=== PATIENT | female | born 1960 | race Caucasian/White ===

== ENCOUNTER 2017-02-17 10:41 | Inpatient (IN) | payer OTHER ==
[~2017-02-17] VITALS: Ht 147.3 cm; Wt 73.3 kg
[~2017-02-17 10:41] MED LIST: BACL10TA PO; BUPR150T7 PO; HYDR1CAP85 PO; LEVO112T4 PO; LOSA100T65 PO; OXYB5TAB21 PO; PRAZ1CAP28 PO; SIMV40TA2 PO; TRAZ1TAB5 PO; VENL150C56 PO
[2017-02-17] MEDS ORDERED: SODIUM CHLORIDE 0.9% 1000ML 1,000 ML IV STA (11:16)
[2017-02-17] MEDS ORDERED: ONDANSETRON INJ 2 MG/ML 2 ML VIAL IV STA (11:16)
[2017-02-17] MEDS: MoRPHine SULFATE 4 MG/ML 1 ML CARP\\VIAL IV PRN ×2 (11:45→13:26)
[2017-02-17 11:46] LABS: BASO % 0.1 %; BASO ABS # 0.01 K/uL (0-0.2); COMPLETE YES; EOS % 0.1 %; HEMATOCRIT 34.6 % (37-47); IG% 0.3 %; LYMPH % 10.6 %; LYMPH ABS # 1.15 K/uL (1.2-3.4); MEAN CELL VOLUME 85.9 fL (80-100); MEAN CORPUSCULAR HEMOGLOBIN 30.3 pg (25-34); MEAN CORPUSCULAR HGB CONC 35.3 g/dl (32-36); MEAN PLATELET VOLUME 9.6 fL (7.4-10.4); MONO % 10.6 %; NEUT % 78.3 %; PLATELET COUNT 250 K/uL (130-400); RED BLOOD COUNT 4.03 M/uL (4.2-5.4); WHITE BLOOD COUNT 10.81 K/uL (4.8-10.8)
[2017-02-17 11:55] LABS: URINE APPEARANCE CLEAR (CLEAR); URINE BILIRUBIN NEG (NEG); URINE COLOR YELLOW; URINE EPITHELIAL CELL AUTO >30 /lpf (0-5); URINE NITRITE POS (NEG); URINE SPECIFIC GRAVITY 1.008 (1.000-1.030); UROBILINOGEN NEG (NEG)
[2017-02-17 11:58] LABS: INR 1.1 (0.9-1.1); PARTIAL THROMBOPLASTIN RATIO 1.1; PROTHROMBIN TIME (PATIENT) 11.7 SECONDS (9.0-12.0)
[2017-02-17 12:08] LABS: ALT/SGPT 23 U/L (12-78); AMYLASE 23 U/L (25-115); BLOOD UREA NITROGEN 11 mg/dl (7-18); CALCIUM 8.6 mg/dl (8.5-10.1); CARBON DIOXIDE 24 mmol/L (21-32); CHLORIDE 104 mmol/L (98-107); CREATININE 0.83 mg/dl (0.60-1.20); GLUCOSE 109 mg/dl (70-99); POTASSIUM 3.5 mmol/L (3.5-5.1); SODIUM 136 mmol/L (136-145)
--- NOTE | 2017-02-17 12:10 | DIAGNOSTIC IMAGING REPORT ---
CT SCAN OF THE ABDOMEN AND PELVIS WITHOUT CONTRAST CLINICAL HISTORY: Left flank pain COMPARISON STUDY: No previous studies for comparison. TECHNIQUE: CT scan of the abdomen and pelvis was performed from the lung bases to the proximal femurs. Images are reviewed in the axial, sagittal, and coronal planes. IV contrast was not administered for this examination. A dose lowering technique was utilized adhering to the principles of ALARA. CT DOSE: 377.61 mGy.cm FINDINGS: Lower chest: There are mild basilar atelectatic changes. Liver: The unenhanced liver is normal in size, contour, and attenuation. There is no intrahepatic biliary ductal dilatation. Gallbladder: Unremarkable. Spleen: Normal in size and attenuation. Pancreas: Unremarkable. Adrenal glands: Unremarkable. Kidneys: There is mild right-sided hydronephrosis and right-sided perinephric stranding. No renal, ureteral, or bladder calculi are visualized. Diagnostic considerations include a recently passed or radiolucent calculus, infection, or other cause of ureteral obstruction. Close follow-up will be necessary. Bowel: There are no transition zones to indicate bowel obstruction. There is no acute diverticulitis. By history the appendix is surgically absent. Peritoneum: There is no intraperitoneal free air or abdominal ascites. Vasculature: The abdominal aorta is normal in course and caliber. Adenopathy: None. Pelvic viscera: The uterus appears surgically absent. Skeletal structures: No destructive osseous lesions are seen. IMPRESSION: 1. No evidence of bowel obstruction. No evidence of free air 2. Mild right-sided hydronephrosis and proximal hydroureter. No calculi identified. Diagnostic considerations include recently passed or radiolucent calculus, infection, or ureteral obstruction secondary to blood clot or neoplasm Electronically signed by: Koffi Blas M.D. 02/17/2017 12:09 PM Dictated Date/Time: 02/17/2017 12:02 PM
[2017-02-17 12:11] LABS: MANUAL MICROSCOPIC REQUIRED? NO; REVIEW REQ? NO
[2017-02-17 12:13] LABS: ALKALINE PHOSPHATASE 109 U/L (45-117); AST/SGOT 15 U/L (15-37); CKMB/CK RATIO 0.7 (0-3.0)
--- NOTE | 2017-02-17 12:28 | DIAGNOSTIC IMAGING REPORT ---
CHEST ONE VIEW PORTABLE CLINICAL HISTORY: Abdominal pain COMPARISON STUDY: October 04, 2015 FINDINGS: The cardiac and mediastinal contours are normal. There is no evidence of focal pulmonary consolidation. There is no evidence of failure. No pleural effusions are visualized.[ There are bibasal atelectatic changes. There is no free intraperitoneal air. IMPRESSION: No active disease in the chest. Mild bibasal atelectasis. No evidence of free intraperitoneal air. Electronically signed by: Koffi Blas M.D. 02/17/2017 12:27 PM Dictated Date/Time: 02/17/2017 12:26 PM
[2017-02-17] MEDS ORDERED: CEFTRIAXONE SOD INJ 1 GM ADDVIAL IV STA (12:40)
[2017-02-17] MEDS ORDERED: CLB/200 PO (12:41)
[2017-02-17] MEDS ORDERED: NRN300 PO (12:41)
[2017-02-17] MEDS ORDERED: ATR10 PO (12:41)
[2017-02-17] MEDS ORDERED: DISU1TAB PO (12:41)
--- NOTE | 2017-02-17 13:12 | EMERGENCY ROOM VISIT NOTE ---
History Report prepared by Seun: Spike Gordon Under the Supervision of: Dr. Jcarlos Godoy D.O. First contact with patient: 11:07 Chief Complaint: CONSTIPATION Stated Complaint: NAUSEA, CONSTIPATION X 1-2 WKS Nursing Triage Summary: Patient reports lower back pain states no bowel movement x 2 weeks. Denies previous issues with constipation Patient c/o nausea Sent by [facility] History of Present Illness The patient is a 56 year old female who presents to the Emergency Room with complaints of persistent constipation beginning two weeks ago. She states that she has not defecated in two weeks, but had a small bowel movement yesterday. She currently complains of abdominal pain, nausea, difficultly swallowing, burning with urination and back pain. The patient was seen at [facility] just prior to arrival for her symptoms and was referred to the ED. She was found to have a UTI at that time. She denies any blood in her stool or vaginal discharge. The patient states that she has been taking her medication as prescribed. She notes that she has a history of arthritis in her back. She states that she has not been eating much recently. The patient's sister notes that the patient has been having a lot of social problems over the past three months. She states that the patient's left her, and has not been eating much since this time. The patient has a history of depression, and previous alcoholism. She is currently on Disulfiram for her alcoholism, and notes that she missed her dose yesterday. Source of History: patient Onset: Two weeks ago Quality: other (constipation) Timing: other (persistent) Associated Symptoms: + nausea, + abdominal pain, + back pain, + urinary symptoms (burning), No hematochezia Note: Additional symptoms: difficulty swallowing. She denies any vaginal discharge. Review of Systems See HPI for pertinent positives & negatives. A total of 10 systems reviewed and were otherwise negative. Past Medical & Surgical Medical Problems: (1) Alcohol dependence (2) History of attempted suicide (3) Intractable low back pain (4) Major depressive disorder (5) Suicide attempt by acetaminophen overdose (6) Tylenol ingestion Family History FHx: cardiovascular disease Social History Smoking Status: Former Smoker Alcohol Use: none Drug Use: none Marital Status: Housing Status: lives with family Occupation Status: employed Current/Historical Medications Scheduled Bupropion Hcl (Wellbutrin Sr), 150 MG PO DAILY Disulfiram (Antabuse), 250 MG PO DAILY Gabapentin (Gabapentin), 1 CAP PO DAILY Hydroxyzine Pamoate (Vistaril), 25 MG PO DAILY Levothyroxine Sodium (Levothyroxine Sodium), 112 MCG PO DAILY Losartan Potassium (Cozaar), 100 MG PO DAILY Oxybutynin Chloride (Ditropan Xl), 10 TAB PO DAILY Prazosin Hcl (Prazosin), 1 MG PO QID Simvastatin (Zocor), 40 MG PO QPM Venlafaxine Hcl (Effexor Extended Rel), 150 MG PO DAILY Scheduled PRN Baclofen (Lioresal), 10 MG PO TID PRN for prn Celecoxib (CeleBREX), 200 MG PO UD PRN for Pain Hydroxyzine HCl (Hydroxyzine HCl), 1 TAB PO DAILY PRN for Anxiety Trazodone Hcl (Desyrel), 50 MG PO HS PRN for Insomnia Allergies Coded Allergies: Sulfa Antibiotics (Verified Allergy, Unknown, `, 02/17/17) Lisinopril (Verified Adverse Reaction, Mild, cough, 02/17/17) Physical Exam Vital Signs Date Time Temp Pulse Resp B/P (MAP) Pulse Ox O2 Delivery O2 Flow Rate FiO2 02/17/17 12:52 98 16 132/82 96 Room Air 02/17/17 12:26 97 02/17/17 12:10 95 18 131/82 97 Room Air 02/17/17 10:49 36.6 112 20 117/81 97 Room Air Physical Exam GENERAL: Patient is awake, alert, and in no acute distress. Patient appears very anxious and uncomfortable. EYES: The conjunctivae are clear. The pupils are round and reactive. EARS, NOSE, MOUTH AND THROAT: The nose is without any evidence of any deformity. Mucous membranes are moist tongue is midline NECK: The neck is nontender and supple. RESPIRATORY: Normal respiratory effort is noted there is no evidence of wheezing rhonchi or rales CARDIOVASCULAR: Regular rate and rhythm noted there no murmurs rubs or gallops normal S1 normal S2 GASTROINTESTINAL: Bowel sounds are present in all quadrants. Mildly distended with diffuse tenderness. No guarding or rigidity noted. BACK: No midline tenderness or or step-off noted range of motion in flexion extension as well as rotation no signs of muscle spasm noted. Diffuse tenderness to palpation. No specific midline tenderness. ROM intact. MUSCULOSKELETAL/EXTREMITIES: There is no evidence of gross deformity full range of motion is noted in the hips and shoulders SKIN: There is no obvious evidence of any rash. There are no petechiae, pallor or cyanosis noted. NEUROLOGIC: Patient is awake alert and oriented x3 strength is symmetric patellar reflexes are 2+ bilaterally. Medical Decision & Procedures ER Provider Diagnostic Interpretation: CT results as stated below per my review and radiologist interpretation. CT SCAN OF THE ABDOMEN AND PELVIS WITHOUT CONTRAST FINDINGS: Lower chest: There are mild basilar atelectatic changes. Liver: The unenhanced liver is normal in size, contour, and attenuation. There is no intrahepatic biliary ductal dilatation. Gallbladder: Unremarkable. Spleen: Normal in size and attenuation. Pancreas: Unremarkable. Adrenal glands: Unremarkable. Kidneys: There is mild right-sided hydronephrosis and right-sided perinephric stranding. No renal, ureteral, or bladder calculi are visualized. Diagnostic considerations include a recently passed or radiolucent calculus, infection, or other cause of ureteral obstruction. Close follow-up will be necessary. Bowel: There are no transition zones to indicate bowel obstruction. There is no acute diverticulitis. By history the appendix is surgically absent. Peritoneum: There is no intraperitoneal free air or abdominal ascites. Vasculature: The abdominal aorta is normal in course and caliber. Adenopathy: None. Pelvic viscera: The uterus appears surgically absent. Skeletal structures: No destructive osseous lesions are seen. IMPRESSION: 1. No evidence of bowel obstruction. No evidence of free air 2. Mild right-sided hydronephrosis and proximal hydroureter. No calculi identified. Diagnostic considerations include recently passed or radiolucent calculus, infection, or ureteral obstruction secondary to blood clot or neoplasm Electronically signed by: Koffi Blas M.D. 02/17/2017 12:09 PM CHEST ONE VIEW PORTABLE FINDINGS: The cardiac and mediastinal contours are normal. There is no evidence of focal pulmonary consolidation. There is no evidence of failure. No pleural effusions are visualized.[ There are bibasal atelectatic changes. There is no free intraperitoneal air. IMPRESSION: No active disease in the chest. Mild bibasal atelectasis. No evidence of free intraperitoneal air. Electronically signed by: Koffi Blas M.D. Laboratory Results 02/17/17 11:35 Red Blood Count 4.03, Mean Corpuscular Volume 85.9, Mean Corpuscular Hemoglobin 30.3, Mean Corpuscular Hemoglobin Concent 35.3, Mean Platelet Volume 9.6, Neutrophils (%) (Auto) 78.3, Lymphocytes (%) (Auto) 10.6, Monocytes (%) (Auto) 10.6, Eosinophils (%) (Auto) 0.1, Basophils (%) (Auto) 0.1, Neutrophils # (Auto ) 8.46, Lymphocytes # (Auto) 1.15, Monocytes # (Auto) 1.15, Eosinophils # (Auto ) 0.01, Basophils # (Auto) 0.01 02/17/17 11:35 Test 02/17/17 11:30 02/17/17 11:35 Urine Color YELLOW Urine Appearance CLEAR (CLEAR) Urine pH 6.0 (4.5-7.5) Urine Specific Cobb 1.008 (1.000-1.030) Urine Protein NEG (NEG) Urine Glucose (UA) NEG (NEG) Urine Ketones 1+ (NEG) Urine Occult Blood TRACE (NEG) Urine Nitrite POS (NEG) Urine Bilirubin NEG (NEG) Urine Urobilinogen NEG (NEG) Urine Leukocyte Esterase SMALL (NEG) Urine WBC (Auto) 10-30 /hpf (0-5) Urine RBC (Auto) 0-4 /hpf (0-4) Urine Hyaline Casts (Auto) 0 /lpf (0-5) Urine Epithelial Cells (Auto) >30 /lpf (0-5) Urine Bacteria (Auto) 4+ (NEG) White Blood Count 10.81 K/uL (4.8-10.8) Red Blood Count 4.03 M/uL (4.2-5.4) Hemoglobin 12.2 g/dL (12.0-16.0) Hematocrit 34.6 % (37-47) Mean Corpuscular Volume 85.9 fL (80-100) Mean Corpuscular Hemoglobin 30.3 pg (25-34) Mean Corpuscular Hemoglobin Concent 35.3 g/dl (32-36) Platelet Count 250 K/uL (130-400) Mean Platelet Volume 9.6 fL (7.4-10.4) Neutrophils (%) (Auto) 78.3 % Lymphocytes (%) (Auto) 10.6 % Monocytes (%) (Auto) 10.6 % Eosinophils (%) (Auto) 0.1 % Basophils (%) (Auto) 0.1 % Neutrophils # (Auto) 8.46 K/uL (1.4-6.5) Lymphocytes # (Auto) 1.15 K/uL (1.2-3.4) Monocytes # (Auto) 1.15 K/uL (0.11-0.59) Eosinophils # (Auto) 0.01 K/uL (0-0.5) Basophils # (Auto) 0.01 K/uL (0-0.2) RDW Standard Deviation 39.6 fL (36.4-46.3) RDW Coefficient of Variation 12.5 % (11.5-14.5) Immature Granulocyte % (Auto) 0.3 % Immature Granulocyte # (Auto) 0.03 K/uL (0.00-0.02) Prothrombin Time 11.7 SECONDS (9.0-12.0) Prothromb Time International Ratio 1.1 (0.9-1.1) Activated Partial Thromboplast Time 29.7 SECONDS (21.0-31.0) Partial Thromboplastin Ratio 1.1 Anion Gap 8.0 mmol/L (3-11) Est Creatinine Clear Calc Drug Dose 62.8 ml/min Estimated GFR () 90.1 Estimated GFR (Non- 77.7 BUN/Creatinine Ratio 13.0 (10-20) Calcium Level 8.6 mg/dl (8.5-10.1) Total Bilirubin 0.4 mg/dl (0.2-1) Direct Bilirubin 0.2 mg/dl (0-0.2) Aspartate Amino Transf (AST/SGOT) 15 U/L (15-37) Alanine Aminotransferase (ALT/SGPT) 23 U/L (12-78) Alkaline Phosphatase 109 U/L (45-117) Total Creatine Kinase 95 U/L (26-192) Creatine Kinase MB 0.7 ng/ml (0.5-3.6) Creatine Kinase MB Ratio 0.7 (0-3.0) Troponin I < 0.015 ng/ml (0-0.045) Total Protein 7.0 gm/dl (6.4-8.2) Albumin 3.2 gm/dl (3.4-5.0) Amylase Level 23 U/L (25-115) Lipase 43 U/L (73-393) Thyroid Stimulating Hormone (TSH) 0.366 uIu/ml (0.300-4.500) Laboratory results per my review. Medications Administered Medications (Trade) Dose Ordered Sig/John Route Start Time Stop Time Status Last Admin Dose Admin Sodium Chloride 1,000 ml @ 999 mls/hr Q1H1M STAT IV 02/17/17 11:16 02/17/17 12:16 DC 02/17/17 11:45 999 MLS/HR Ondansetron HCl (Zofran Inj) 4 mg NOW STAT IV 02/17/17 11:16 02/17/17 11:18 DC 02/17/17 11:44 4 MG Morphine Sulfate (MoRPHine SULFATE INJ) 4 mg Q15M PRN IV 02/17/17 11:30 02/17/17 15:10 DC 02/17/17 13:26 4 MG Ceftriaxone Sodium (Rocephin Inj) 1 gm NOW STAT IV 02/17/17 12:40 02/17/17 12:41 DC 02/17/17 12:52 1 GM Acetaminophen (Tylenol Tab) 650 mg Q4H PRN PO 02/17/17 14:00 03/19/17 13:59 02/17/17 16:16 650 MG ECG Indication: abdominal pain Rate (beats per minute): 100 Rhythm: normal sinus Findings: no acute ischemic change, no ectopy Comparison ECG Date: October 04, 2015 Change: no significant change ED Course 1110: The patient was evaluated in room A12B. A complete history and physical examination were performed. 1116: Ordered Zofran Inj 4 mg IV, NSS 1,000 ml @ 999 mls/hr IV. 1130: Ordered Morphine Sulfate 4 mg IV. 1240: Ordered Rocephin Inj 1 gm IV. 1245: Upon reevaluation, the patient is resting comfortably. I discussed results and treatment plan with her. She verbalizes agreement and understanding. I spoke with Dr. Edgar of the [facility] Hospitalist Service. The patient will be evaluated for further management and care. Medical Decision Differential diagnosis: Etiologies such as appendicitis, diverticulitis, PUD, biliary pathology, UTI, pancreatitis, obstruction, mesenteric ischemia, aortic pathology, infections, inflammatory bowel disease, renal colic, as well as others were entertained. Nursing notes reviewed. Additional history is obtained from the patient's sister. The patient is a 56-year-old female who presented to emergency department for an evaluation of severe back pain as well as abdominal pain. The patient was seen at [facility] prior to arrival and had a urinalysis which showed signs of infection. She was sent to the emergency apartment for further evaluation. She was treated with IV fluids IV pain medicine and IV antiemetics. She was also given IV antibiotics or presumed urinary tract infection noted on urinalysis. The patient's CT did show abnormalities related to her kidney with dilation in the kidneys as well as the ureter. This could be related to a recently passed stone but given the presence of a significant urinary tract infection I feel this could be related to pyelonephritis. For this reason I discussed her case with the on-call [facility] hospitalist. They've agreed to evaluate the patient in emergency department for further management and disposition. I discussed the patient's laboratory radiographic studies with her and her family members. She was feeling much better on subsequent reevaluation. Medication Reconcilliation Current Medication List: was personally reviewed by me Blood Pressure Screening Patient's blood pressure: Normal blood pressure Blood pressure disposition: Did not require urgent referral Consults Time Called: 1245 Consulting Physician: Dr. Edgar -[facility] Returned Call: 1247 I discussed the patient's case with Dr. Edgar. The patient will be evaluated for further management. Impression Primary Impression: Pyelonephritis Additional Impressions: Hydronephrosis Back pain Diffuse abdominal pain Scribe Attestation The scribe's documentation has been prepared under my direction and personally reviewed by me in its entirety. I confirm that the note above accurately reflects all work, treatment, procedures, and medical decision making performed by me. Departure Information Dispostion Being Evaluated By Hospitalist Referrals Felisa Guthrie PA-C (PCP) Patient Instructions My [facility] Problem Qualifiers
[2017-02-17] MEDS ORDERED: POLYETHYLENE (MIRALAX) 17 GM PACK PO PRN (14:00)
[2017-02-17] MEDS ORDERED: ALUMINUM/MAGNESIUM/SIMETH (MAALOX MAX) 30 ML UDC PO PRN (14:00)
[2017-02-17] MEDS ORDERED: ONDANSETRON INJ 2 MG/ML 2 ML VIAL IV PRN (14:00)
[2017-02-17] MEDS ORDERED: MoRPHine SULFATE 4 MG/ML 1 ML CARP\\VIAL IV PRN ×2 (14:15→17:15)
[2017-02-17] MEDS ORDERED: TRAZODONE HCL 50 MG TAB PO PRN (14:15)
[2017-02-17] MEDS ORDERED: BACLOFEN 10 MG TAB PO PRN (14:15)
[2017-02-17] MEDS ORDERED: MoRPHine SULFATE 2 MG/ML CARP IV PRN (14:15)
[2017-02-17] MEDS ORDERED: hydrOXYzine HCL 10 MG TAB PO PRN (14:15)
--- NOTE | 2017-02-17 14:37 | History and Physical ---
History & Physical Date & Time of Service: Feb 17, 2017 at 14:32 Chief Complaint: Nausea, Constipation X 1-2 Wks Primary Care Physician: Felisa Guthrie PA-C History of Present Illness Source: patient Ms. Norris is a 56 y/o female with PMHx of HTN, HLD, Hypothyroidism, and Alcohol Abuse on Antabuse who presents to the ED c/o constipation x 2 weeks. She reports she had a very small BM yesterday but was not adequate. She denies chronic H/O constipation. She has been utilizing 1-2 times a day laxatives x 1 week without BM. She also complains of abdominal pain, nausea, dysphagia, back pain, and dysuria x 3-4 days. She states that she noticed her chronic low back pain was more severe than baseline and does not feelings of needing to void but unable to a couple days ago. She does report feelings of being fevered and chilled but did not have a fever when she checked at home. Family reports that she has lost significant weight over the past 3 months due to depression/ anxiety related to her leaving her. She does also contribute this to dysphagia and having difficulty initiating swallowing mostly with solid foods. She denies choking or coughing with eating. She also has a H/O alcohol abuse and reports taking Antabuse x 3 months and was on it previous to this. She has not taken this medication x 2 days due to thinking it was causing her symptoms. However the dysphagia was prior to this medication. She has not had a drink of alcohol in > 3 months and denies withdrawal effects. In the ED, she has a mild leukocytosis and initially tachycardic. UA significant for infection with culture pending. CT with mild R hydronephrosis and proximal hydroureter, without stone visualized. Past Medical/Surgical History Medical Problems: (1) Alcohol dependence Status: Chronic (2) Major depressive disorder Status: Chronic Family History FHx: cardiovascular disease Social History Smoking Status: Former Smoker Smokeless Tobacco Use: No Alcohol Use: none (On Antabuse) Drug Use: none Marital Status: Housing status: lives with family Occupational Status: employed Immunizations History of Influenza Vaccine: Yes Influenza Vaccine Date: Mar 14, 2012 History of Tetanus Vaccine?: Yes Tetanus Immunization Date: Apr 04, 2009 History of Pneumococcal: Yes History of Hepatitis B Vaccine: No Multi-Drug Resistant Organisms History of MDRO: No Allergies Coded Allergies: Sulfa Antibiotics (Verified Allergy, Unknown, `, 02/17/17) Lisinopril (Verified Adverse Reaction, Mild, cough, 02/17/17) Home Medications Scheduled Bupropion Hcl (Wellbutrin Sr), 150 MG PO DAILY Disulfiram (Antabuse), 250 MG PO DAILY Gabapentin (Gabapentin), 1 CAP PO DAILY Hydroxyzine Pamoate (Vistaril), 25 MG PO DAILY Levothyroxine Sodium (Levothyroxine Sodium), 112 MCG PO DAILY Losartan Potassium (Cozaar), 100 MG PO DAILY Oxybutynin Chloride (Ditropan Xl), 10 TAB PO DAILY Prazosin Hcl (Prazosin), 1 MG PO QID Simvastatin (Zocor), 40 MG PO QPM Venlafaxine Hcl (Effexor Extended Rel), 150 MG PO DAILY Scheduled PRN Baclofen (Lioresal), 10 MG PO TID PRN for prn Celecoxib (CeleBREX), 200 MG PO UD PRN for Pain Hydroxyzine HCl (Hydroxyzine HCl), 1 TAB PO DAILY PRN for Anxiety Trazodone Hcl (Desyrel), 50 MG PO HS PRN for Insomnia Review of Systems Constitutional: + fever, + chills, + weight loss, + weakness (generalized) ENT: + trouble swallowing Respiratory: No cough, No shortness of breath Cardiovascular: No chest pain, No palpitations Abdomen: + pain (B/L lower quadrants), + nausea, + constipation (x 2 weeks), No vomiting, No diarrhea, No GI bleeding Musculoskeletal: No swelling, No calf pain Genitourinary - Female: + dysuria, + urinary frequency, + urinary retention, No vaginal bleeding, No vaginal discharge Hematologic / Lymphatic: No abnormal bleeding/bruising Integumentary: No rash Physical Exam Vital Signs Date Time Temp Pulse Resp B/P (MAP) Pulse Ox O2 Delivery O2 Flow Rate FiO2 02/17/17 14:30 82 18 151/84 96 Room Air 02/17/17 12:52 98 16 132/82 96 Room Air 02/17/17 12:26 97 02/17/17 12:10 95 18 131/82 97 Room Air 02/17/17 10:49 36.6 112 20 117/81 97 Room Air General Appearance: WD/WN, no apparent distress Head: normocephalic, atraumatic Eyes: sclerae normal ENT: hearing grossly normal, pharynx normal (narrow airway; larger tonsils without erythema or exudate) Neck: supple, no JVD, trachea midline, + thyroid abnormalities (diffuse enlargement to palpation; no hardened nodules appreciated) Respiratory/Chest: lungs clear, normal breath sounds, no respiratory distress, no accessory muscle use Cardiovascular: regular rate, rhythm, no gallop, no murmur Abdomen/GI: normal bowel sounds, soft, + tenderness (bilateral lower quadrants) Back: + pertinent finding (tenderness to B/L lower back and flank) Extremities/Musculoskelatal: no calf tenderness, no pedal edema Neurologic/Psych: alert, oriented x 3 Skin: normal color, warm/dry Diagnostics Laboratory Results Results Past 24 Hours Test 02/17/17 11:30 02/17/17 11:35 Range/Units Urine Color YELLOW Urine Appearance CLEAR CLEAR Urine pH 6.0 4.5-7.5 Urine Specific [place] 1.008 1.000-1.030 Urine Protein NEG NEG Urine Glucose (UA) NEG NEG Urine Ketones 1+ NEG Urine Occult Blood TRACE NEG Urine Nitrite POS NEG Urine Bilirubin NEG NEG Urine Urobilinogen NEG NEG Urine Leukocyte Esterase SMALL NEG Urine WBC (Auto) 10-30 0-5 /hpf Urine RBC (Auto) 0-4 0-4 /hpf Urine Hyaline Casts (Auto) 0 0-5 /lpf Urine Epithelial Cells (Auto) >30 0-5 /lpf Urine Bacteria (Auto) 4+ NEG White Blood Count 10.81 4.8-10.8 K/uL Red Blood Count 4.03 4.2-5.4 M/uL Hemoglobin 12.2 12.0-16.0 g/dL Hematocrit 34.6 37-47 % Mean Corpuscular Volume 85.9 80-100 fL Mean Corpuscular Hemoglobin 30.3 25-34 pg Mean Corpuscular Hemoglobin Concent 35.3 32-36 g/dl Platelet Count 250 130-400 K/uL Mean Platelet Volume 9.6 7.4-10.4 fL Neutrophils (%) (Auto) 78.3 % Lymphocytes (%) (Auto) 10.6 % Monocytes (%) (Auto) 10.6 % Eosinophils (%) (Auto) 0.1 % Basophils (%) (Auto) 0.1 % Neutrophils # (Auto) 8.46 1.4-6.5 K/uL Lymphocytes # (Auto) 1.15 1.2-3.4 K/uL Monocytes # (Auto) 1.15 0.11-0.59 K/uL Eosinophils # (Auto) 0.01 0-0.5 K/uL Basophils # (Auto) 0.01 0-0.2 K/uL RDW Standard Deviation 39.6 36.4-46.3 fL RDW Coefficient of Variation 12.5 11.5-14.5 % Immature Granulocyte % (Auto) 0.3 % Immature Granulocyte # (Auto) 0.03 0.00-0.02 K/uL Prothrombin Time 11.7 9.0-12.0 SECONDS Prothromb Time International Ratio 1.1 0.9-1.1 Activated Partial Thromboplast Time 29.7 21.0-31.0 SECONDS Partial Thromboplastin Ratio 1.1 Sodium Level 136 136-145 mmol/L Potassium Level 3.5 3.5-5.1 mmol/L Chloride Level 104 98-107 mmol/L Carbon Dioxide Level 24 21-32 mmol/L Anion Gap 8.0 3-11 mmol/L Blood Urea Nitrogen 11 7-18 mg/dl Creatinine 0.83 0.60-1.20 mg/dl Est Creatinine Clear Calc Drug Dose 62.8 ml/min Estimated GFR () 90.1 Estimated GFR (Non- 77.7 BUN/Creatinine Ratio 13.0 10-20 Random Glucose 109 70-99 mg/dl Calcium Level 8.6 8.5-10.1 mg/dl Total Bilirubin 0.4 0.2-1 mg/dl Direct Bilirubin 0.2 0-0.2 mg/dl Aspartate Amino Transf (AST/SGOT) 15 15-37 U/L Alanine Aminotransferase (ALT/SGPT) 23 12-78 U/L Alkaline Phosphatase 109 45-117 U/L Total Creatine Kinase 95 26-192 U/L Creatine Kinase MB 0.7 0.5-3.6 ng/ml Creatine Kinase MB Ratio 0.7 0-3.0 Troponin I < 0.015 0-0.045 ng/ml Total Protein 7.0 6.4-8.2 gm/dl Albumin 3.2 3.4-5.0 gm/dl Amylase Level 23 25-115 U/L Lipase 43 73-393 U/L Microbiology Results 02/17/17 Urine Culture, Received Pending Diagnostic Radiology CT SCAN OF THE ABDOMEN AND PELVIS WITHOUT CONTRAST FINDINGS: Lower chest: There are mild basilar atelectatic changes. Liver: The unenhanced liver is normal in size, contour, and attenuation. There is no intrahepatic biliary ductal dilatation. Gallbladder: Unremarkable. Spleen: Normal in size and attenuation. Pancreas: Unremarkable. Adrenal glands: Unremarkable. Kidneys: There is mild right-sided hydronephrosis and right-sided perinephric stranding. No renal, ureteral, or bladder calculi are visualized. Diagnostic considerations include a recently passed or radiolucent calculus, infection, or other cause of ureteral obstruction. Close follow-up will be necessary. Bowel: There are no transition zones to indicate bowel obstruction. There is no acute diverticulitis. By history the appendix is surgically absent. Peritoneum: There is no intraperitoneal free air or abdominal ascites. Vasculature: The abdominal aorta is normal in course and caliber. Adenopathy: None. Pelvic viscera: The uterus appears surgically absent. Skeletal structures: No destructive osseous lesions are seen. IMPRESSION: 1. No evidence of bowel obstruction. No evidence of free air 2. Mild right-sided hydronephrosis and proximal hydroureter. No calculi identified. Diagnostic considerations include recently passed or radiolucent calculus, infection, or ureteral obstruction secondary to blood clot or neoplasm CHEST ONE VIEW PORTABLE FINDINGS: The cardiac and mediastinal contours are normal. There is no evidence of focal pulmonary consolidation. There is no evidence of failure. No pleural effusions are visualized.[ There are bibasal atelectatic changes. There is no free intraperitoneal air. IMPRESSION: No active disease in the chest. Mild bibasal atelectasis. No evidence of free intraperitoneal air. Impression Assessment and Plan Ms. Norris is a 56 y/o female with PMHx of HTN, HLD, Hypothyroidism, and Alcohol Abuse on Antabuse who presents to the ED c/o constipation x 2 weeks. Further testings suggest pyelonephritis and possible renal calculi. Pyelnephritis with Possible Nephrolithiasis: - CT with mild hydronephrosis and proximal hydroureter - no calculi visualized - possible recent stone passage vs infection vs ureteral obstruction - Ceftriaxone 1 g IV daily while awaiting culture - NSS at 125 mL/hr - Morphine 2-4 mg IV PRN - will monitor use and will need to do limited Rx on D/ C given H/O suicide attempt with OD - Will strain urine for possible stone fragments - Consideration for urology consultation if symptoms without improvement Severe Constipation: - CT with evidence of signficant stool in ascending colon - without obstruction - Milk of Molasses enema - Docusate Sodium 100 mg BID and Miralax daily and Dulcolax PRN Dysphagia: - Bedside swallow evaluation - reporting difficulty with solid foods mostly and in the initiation phase of swallow - Consideration for speech pathology consultation - Further GI testing could be placed outpatient Hypothyroidism: - U/S Neck - on examination thyroid felt enlarged but U/S without enlargement - consideration for cause of Dysphagia - TSH is compensated - Levothyroxine 112 mcg daily HTN: - Losartan 100 mg daily and Prazosin 1 mg QID HLD: - Simvastatin 40 mg daily Depression/Anxiety with H/O Suicide Attempts: No SI - Long standing issues with recent issues x 3 months - Wellbutrin 150 mg daily and Vistaril 10 mg TID PRN - Effexor 150 mg daily - Patient appears anxious - does not appear to be having withdrawal from ETOH DVT Prophylaxis: STONEY/SCD Code Status: FULL RESUSCITATION Disposition: Await UCx and oral conversion - poss. D/C 2-3 days I agree with PA assessment and plan and have seen and examined pt myself. Resting comfortably in bed VSS Pt reports bilateral flank pain ?pyelonephritis, cont antibx at this time, await urine cx Dysphagia, will need swallow eval and ?EGD, can be done as outpt Level of Care Med/Surg Resuscitation Status FULL RESUSCITATION VTE Prophylaxis VTE Risk Assessment Done? Y/N: Yes Risk Level: Moderate Given or contraindicated: T.E.D. Stockings, SCD's Social Service Consult None Apply
--- NOTE | 2017-02-17 15:18 | DIAGNOSTIC IMAGING REPORT ---
THYROID ULTRASONOGRAPHY CLINICAL HISTORY: Thyromegaly COMPARISON STUDY: No previous studies for comparison. FINDINGS: The right lobe of the thyroid measures 36 x 12 x 9 mm. Left lobe of the thyroid measures 40 x 10 x 10 mm. Both lobes are heterogeneous in echotexture. There are no focal nodules. The thyroid is not enlarged. IMPRESSION: Heterogeneous thyroid echotexture, likely the sequela of thyroiditis. No thyroid masses identified Electronically signed by: Koffi Blas M.D. 02/17/2017 3:16 PM Dictated Date/Time: 02/17/2017 3:15 PM
[2017-02-17] MEDS ORDERED: MILK AND MOLASSES ENEMA PR ONE (15:30)
[2017-02-17] MEDS ORDERED: MILK AND MOLASSES ENEMA PR SCH (16:00)
[2017-02-17] MEDS: PRAZOSIN HCL 1 MG CAP PO SCH ×2 (16:04→20:26)
[2017-02-17] MEDS: SODIUM CHLORIDE 0.9% 1000ML 1,000 ML IV SCH ×2 (16:09→22:18)
[2017-02-17] MEDS: ACETAMINOPHEN 325 MG TAB PO PRN ×2 (16:16→23:21)
[2017-02-17 16:38] VITALS: BP 126/68; PULSE 106; TEMP 37.2; O2SAT 97; Ht 147.3 cm; Wt 73.3 kg
[2017-02-17] MEDS ORDERED: BISACODYL 10 MG SUPP PR PRN (17:15)
[2017-02-17] MEDS: SIMVASTATIN 40 MG TAB PO SCH (20:26)
[2017-02-17] MEDS: DOCUSATE SODIUM 100 MG CAP PO SCH (20:26)
[2017-02-17 23:11] VITALS: BP 134/80; PULSE 92; TEMP 37; O2SAT 96
[2017-02-18] VITALS (9 sets, daily range): BP systolic 99–131; BP diastolic 67–84; PULSE 82–106; TEMP 37–37.5; O2SAT 94–95
[2017-02-18] MEDS: SODIUM CHLORIDE 0.9% 1000ML 1,000 ML IV SCH (05:48)
[2017-02-18] MEDS: LEVOTHYROXINE 112 MCG TAB PO SCH (05:48)
[2017-02-18 05:59] LABS: HEMATOCRIT 30.3 % (37-47); MEAN CELL VOLUME 89.1 fL (80-100); MEAN CORPUSCULAR HEMOGLOBIN 29.4 pg (25-34); MEAN PLATELET VOLUME 9.8 fL (7.4-10.4); PLATELET COUNT 228 K/uL (130-400); WHITE BLOOD COUNT 7.15 K/uL (4.8-10.8)
[2017-02-18 06:29] LABS: BUN/CREATININE RATIO 8.4 (10-20); CALCIUM 7.5 mg/dl (8.5-10.1); CREATININE 0.73 mg/dl (0.60-1.20); POTASSIUM 3.4 mmol/L (3.5-5.1)
[2017-02-18] MEDS: DOCUSATE SODIUM 100 MG CAP PO SCH ×2 (07:41→19:42)
[2017-02-18] MEDS: MAGNESIUM HYDROXIDE SUSP 30 ML UDC PO PRN ×2 (07:41→19:46)
[2017-02-18] MEDS: PRAZOSIN HCL 1 MG CAP PO SCH ×4 (07:43→19:41)
[2017-02-18] MEDS: VENLAFAXINE HCL XR 150 MG CAPXR PO SCH (07:43)
[2017-02-18] MEDS: BuPROPion SR 150 MG TABCR PO SCH (07:44)
[2017-02-18] MEDS: GABAPENTIN 300 MG CAP PO SCH (07:44)
[2017-02-18] MEDS ORDERED: KETOROLAC TROMETHAMINE 15 MG/ML VIAL IV PRN (08:15)
[2017-02-18] MEDS: LOSARTAN POTASSIUM 50 MG TAB PO SCH (08:25)
[2017-02-18] MEDS: CEFTRIAXONE SOD INJ 1 GM in DEXTROSE 5% ADD-VANTAGE 50ML 50 ML IV SCH (08:45)
[2017-02-18] MEDS ORDERED: BISACODYL 10 MG SUPP PR STA (13:53)
--- NOTE | 2017-02-18 13:59 | Hospitalist Progress Note ---
Hospitalist Progress Note Date of Service Feb 18, 2017. (Ama Gusman PA-C) Subjective Pt evaluation today including: conversation w/ patient, conversation w/ family , physical exam, chart review, lab review, review of studies, review of inpatient medication list Patient seen and evaluated. No acute events overnight. Reporting improvement in pain but not yet at baseline chronic pain. No nausea or vomiting. Did enema without BM. Urinary symptoms resolved. Still has difficulty swallowing that has been ongoing. Did not bring CPAP in but states she can go another night without it. Did off set-up in-hospital Constitutional: No fever, No chills Respiratory: No shortness of breath Cardiovascular: No chest pain, No palpitations Abdomen: + pain (R side into lower back; L lower back pain), + constipation , No nausea, No vomiting, No diarrhea Musculoskeletal: No swelling, No calf pain Female : No dysuria, No urinary frequency Heme: No abnormal bleeding/bruising (Ama Gusman PA-C) Medications Current Inpatient Medications Medications (Trade) Dose Ordered Sig/John Route Start Time Stop Time Status Last Admin Dose Admin Acetaminophen (Tylenol Tab) 650 mg Q4H PRN PO 02/17/17 14:00 03/19/17 13:59 02/17/17 23:21 650 MG Al Hydrox/Mg Hydrox/Simethicone (Maalox Max Susp) 15 ml Q4H PRN PO 02/17/17 14:00 03/19/17 13:59 Magnesium Hydroxide (Milk Of Magnesia Susp) 30 ml Q6H PRN PO 02/17/17 14:00 03/19/17 13:59 02/18/17 07:41 30 ML Polyethylene (Miralax Powder Packet) 17 gm DAILY PRN PO 02/17/17 14:00 03/19/17 13:59 02/17/17 18:18 17 GM Ondansetron HCl (Zofran Inj) 4 mg Q6H PRN IV 02/17/17 14:00 03/19/17 13:59 Baclofen (Lioresal Tab) 10 mg TID PRN PO 02/17/17 14:15 03/19/17 14:14 Bupropion HCl (Wellbutrin-Sr Tab) 150 mg DAILY PO 02/18/17 08:00 03/20/17 08:59 02/18/17 07:44 150 MG Gabapentin (Neurontin Cap) 300 mg DAILY PO 02/18/17 08:00 03/20/17 08:59 02/18/17 07:44 300 MG Hydroxyzine HCl (Vistaril Tab) 10 mg TID PRN PO 02/17/17 14:15 03/19/17 14:14 02/17/17 16:04 10 MG Levothyroxine Sodium (Synthroid Tab) 112 mcg DAILYBB PO 02/18/17 06:30 03/20/17 06:29 02/18/17 05:48 112 MCG Losartan Potassium (coZAAR TAB) 100 mg DAILY PO 02/18/17 08:00 03/20/17 08:59 02/18/17 08:25 100 MG Simvastatin (Zocor Tab) 40 mg QPM PO 02/17/17 21:00 03/19/17 20:59 02/17/17 20:26 40 MG Trazodone HCl (Desyrel Tab) 50 mg HS PRN PO 02/17/17 14:15 03/19/17 14:14 Venlafaxine HCl (effeXOR EXTENDED REL CAP) 150 mg DAILY PO 02/18/17 08:00 03/20/17 08:59 02/18/17 07:43 150 MG Miscellaneous Information (Order Awaiting Action) 1 ea QS N/A 02/17/17 16:00 03/19/17 15:59 Prazosin HCl (Prazosin) 1 mg QID PO 02/17/17 17:00 03/19/17 16:59 02/18/17 12:43 1 MG Sodium Chloride 1,000 ml @ 125 mls/hr Q8H IV 02/17/17 14:15 03/19/17 14:14 02/18/17 05:48 125 MLS/HR Ceftriaxone Sodium 1 gm/ Dextrose 50 ml @ 100 mls/hr Q24H IV 02/18/17 09:00 02/22/17 08:59 02/18/17 08:45 100 MLS/HR Morphine Sulfate (MoRPHine SULFATE INJ) 2 mg Q3H PRN IV 02/17/17 14:15 03/03/17 14:14 02/18/17 08:35 2 MG Docusate Sodium (coLACE CAP) 100 mg BID PO 02/17/17 20:00 03/19/17 20:59 02/18/17 07:41 100 MG Bisacodyl (Dulcolax Supp) 10 mg DAILY PRN IA 02/17/17 17:15 03/19/17 17:14 Ketorolac Tromethamine (Toradol Inj) 15 mg Q6H PRN IV 02/18/17 08:15 02/23/17 08:14 (Ama Gusman PA-C) Objective Vital Signs Date Time Temp Pulse Resp B/P (MAP) Pulse Ox O2 Delivery O2 Flow Rate FiO2 02/18/17 12:42 102 131/81 (98) 02/18/17 09:00 95 Room Air 02/18/17 07:40 120/77 (91) 02/18/17 07:09 37.5 92 20 99/67 (78) 95 Room Air 02/18/17 00:00 Room Air 02/17/17 23:11 37.0 92 18 134/80 (98) 96 Room Air 02/17/17 19:30 Room Air 02/17/17 16:38 37.2 106 20 126/68 97 Room Air 02/17/17 14:30 82 18 151/84 96 Room Air (Ama Gusman PA-C) Physical Exam General Appearance: WD/WN, no apparent distress Eyes: sclerae normal ENT: hearing grossly normal Neck: supple, no JVD, trachea midline Respiratory/Chest: lungs clear, normal breath sounds, no respiratory distress, no accessory muscle use Cardiovascular: regular rate, rhythm, no gallop, no murmur Abdomen: normal bowel sounds, soft, + tenderness (RLQ and with palpation of bilateral lower back) Extremities: no pedal edema, no calf tenderness Neurologic/Psychiatric: alert, oriented x 3 Skin: normal color, warm/dry (Ama Gusman PA-C) Laboratory Results Last 24 Hours Test 02/18/17 05:22 White Blood Count 7.15 K/uL Red Blood Count 3.40 M/uL Hemoglobin 10.0 g/dL Hematocrit 30.3 % Mean Corpuscular Volume 89.1 fL Mean Corpuscular Hemoglobin 29.4 pg Mean Corpuscular Hemoglobin Concent 33.0 g/dl RDW Standard Deviation 41.2 fL RDW Coefficient of Variation 12.8 % Platelet Count 228 K/uL Mean Platelet Volume 9.8 fL Sodium Level 143 mmol/L Potassium Level 3.4 mmol/L Chloride Level 112 mmol/L Carbon Dioxide Level 26 mmol/L Anion Gap 5.0 mmol/L Blood Urea Nitrogen 6 mg/dl Creatinine 0.73 mg/dl Est Creatinine Clear Calc Drug Dose 71.4 ml/min Estimated GFR () 105.2 Estimated GFR (Non- 90.8 BUN/Creatinine Ratio 8.4 Random Glucose 100 mg/dl Calcium Level 7.5 mg/dl (Ama Gusman, PAIsraelC) Assessment and Plan Ms. Norris is a 56 y/o female with PMHx of HTN, HLD, Hypothyroidism, and Alcohol Abuse on Antabuse who presents to the ED c/o constipation x 2 weeks. Further testings suggest pyelonephritis and possible renal calculi. Pyelonephritis: E. coli - CT with mild hydronephrosis and proximal hydroureter - no calculi visualized - possible recent stone passage vs infection vs ureteral obstruction - Ceftriaxone 1 g IV daily while awaiting sensitivities - Toradol PRN - Will do renal U/S tomorrow to monitor resolution - Consideration for urology consultation if symptoms without improvement Severe Constipation: - CT with evidence of significant stool in ascending colon - without obstruction - Dulcolax and JOHN Q6H Miralax Dysphagia: - Speech pathology consultation - appreciate further testing/recommendations - Further GI testing could be placed outpatient Hypothyroidism: - U/S Neck - on examination thyroid felt enlarged but U/S without enlargement - consideration for cause of Dysphagia - TSH is compensated - Levothyroxine 112 mcg daily HTN: - Losartan 100 mg daily and Prazosin 1 mg QID HLD: - Simvastatin 40 mg daily Depression/Anxiety with H/O Suicide Attempts: No SI - Long standing issues with recent worsening x 3 months - Wellbutrin 150 mg daily and Vistaril 10 mg TID PRN - Effexor 150 mg daily Alcohol Abuse on Antabuse: - Currently no withdrawal symptoms - does have generalized anxiety - tolerating Antabuse - Antabuse 250 mg daily - family to bring medication in DVT Prophylaxis: STONEY/SCD Code Status: FULL RESUSCITATION Disposition: Await Cx sensitivities and speech recommendations - May need outpatient GI consultation - Likely D/C tomorrow Continued [facility] stay due to: multiple IV medications needed Discharge planning: home (Ama Gusman PA-C) Reviewed: Pt Seen/Exam by Me (Caity Garay MD) History Physician [employer] Engineer Supervision Note: I interviewed and examined the patient. Discussed with FRIDA Gusman and agree with findings and plan as documented in the note. Any exceptions or clarifications are listed here: Pt tearful that she still has not had a BM in 17 days. SHe has no urge to go. She is passing flatus and denies abd pain. No nausea or vomiting. She is eating a soft diet. She denies any other recent changes in medications. Notes an intentional 30 lb wt loss by eating more fruits and vegetables in the last 3 months. SHe has never had a colonoscopy. She denies ever seeing blood in her stool. She is not anemic except today's hgb slightly lower due to hemodilution. Rt flank pain has resolved since admission She has had Milk of molasses enema yesterday, colace, 2 doses Miralax, Milk of magnesia today and no BM yet. Vitals reviewed NAD but tearful and anxious RRR no mgr CTAB no wcr Abd +BS, softly distended, no TTP, no HSM, RECTAL exam with no ext hemorrhoids, no rectal masses palpated and no stool at all in rectal vault. Ext no edema 56 yo female here with severe constipation and pyelonephritis. Pyelo is improving on Rocephin, E. coli in urine. Concern with severe constipation, no stool to disimpact in the rectum today. Has never had a colonoscopy. Does report change in caliber of stool over the last year-it has become long and thin and developed straining to have BMs q3 days until 2 1/2 weeks ago from which point she has had no BM. -Fleets enema now -continue Miralax q6h, MOM prn -continue colace, Bisacodyl suppos daily prn -GI consultation in case of need for endoscopic disimpaction, also with dysphagia and may need EGD as well Documented By: Caity Garay (Caity Garay MD)
[2017-02-18] MEDS ORDERED: POTASSIUM CHLORIDE 10 MEQ TABCR PO STA (14:15)
[2017-02-18] MEDS: POLYETHYLENE (MIRALAX) 17 GM PACK PO SCH ×2 (14:55→19:40)
[2017-02-18] MEDS: ACETAMINOPHEN 325 MG TAB PO PRN (17:08)
[2017-02-18] MEDS: SIMVASTATIN 40 MG TAB PO SCH (19:41)
[2017-02-18] MEDS ORDERED: SOD PHOSPHATE/SOD BIPHOSPHATE ENEMA 132 ML BTL PR STA (20:59)
[2017-02-19] VITALS: O2SAT 95
[2017-02-19] MEDS: POLYETHYLENE (MIRALAX) 17 GM PACK PO SCH ×3 (01:55→14:00)
[2017-02-19 06:14] LABS: HEMATOCRIT 34.6 % (37-47); MEAN CELL VOLUME 88.7 fL (80-100); MEAN CORPUSCULAR HEMOGLOBIN 28.7 pg (25-34); MEAN CORPUSCULAR HGB CONC 32.4 g/dl (32-36); MEAN PLATELET VOLUME 9.9 fL (7.4-10.4); PLATELET COUNT 308 K/uL (130-400); WHITE BLOOD COUNT 6.68 K/uL (4.8-10.8)
[2017-02-19 06:52] LABS: BUN/CREATININE RATIO 5.4 (10-20); CALCIUM 8.5 mg/dl (8.5-10.1); CREATININE 0.69 mg/dl (0.60-1.20); POTASSIUM 4.1 mmol/L (3.5-5.1)
[2017-02-19 07:50] VITALS: BP 137/84; PULSE 80; TEMP 36.7; O2SAT 95
[2017-02-19] MEDS: PRAZOSIN HCL 1 MG CAP PO SCH ×2 (08:00→14:04)
[2017-02-19 08:45] VITALS: O2SAT 95
[2017-02-19] MEDS: CEFTRIAXONE SOD INJ 1 GM in DEXTROSE 5% ADD-VANTAGE 50ML 50 ML IV SCH (08:57)
--- NOTE | 2017-02-19 11:04 | DIAGNOSTIC IMAGING REPORT ---
(RENAL)RETROPERITONEA COMP HISTORY: Hydronephrosis R hydronephrosis follow-up COMPARISON: CT 02/17/2017 FINDINGS: Right kidney: Maximum dimension 10.6 cm. Slight fullness renal pelvis. Improved from the patient's prior CT study. Normal corticomedullary differentiation and cortical thickness. Left kidney: Maximum dimension 10.8 cm. No evidence for hydronephrosis. Normal corticomedullary differentiation and cortical thickness. Bladder: No bladder wall thickening. The bilateral ureteral jets were identified. IMPRESSION: Improved exam with only minimal residual fullness of the right renal pelvis. No current evidence for pneumothorax. The above report was generated using voice recognition software. It may contain grammatical, syntax or spelling errors. Electronically signed by: Zaki Marsh M.D. 02/19/2017 11:02 AM Dictated Date/Time: 02/19/2017 11:01 AM
--- NOTE | 2017-02-19 11:10 | DIAGNOSTIC IMAGING REPORT ---
(BARIUM SWALLOW) ESOPHAGUS CLINICAL HISTORY: globus sensationdysphagia COMPARISON STUDY: None FLUOROSCOPY TIME: 0.8 minutes. FINDINGS: Patient initiated swallowing function well. There is moderate esophageal dysmotility. Gastroesophageal junction is unremarkable. There are findings of mild gastroesophageal reflux. IMPRESSION: 1. Moderate esophageal spasm and/or dysmotility. 2. Mild reflux. The above report was generated using voice recognition software. It may contain grammatical, syntax or spelling errors. Electronically signed by: Zaki Marsh M.D. 02/19/2017 11:09 AM Dictated Date/Time: 02/19/2017 11:08 AM
[2017-02-19] MEDS ORDERED: PANT40TA PO (13:31)
[2017-02-19] MEDS ORDERED: CEPH-571 PO (13:31)
[2017-02-19] MEDS ORDERED: CLC100 PO (13:32)
--- NOTE | 2017-02-19 13:38 | Discharge Instructions ---
Discharge Instructions Date of Service Feb 19, 2017. Admission Reason for Admission: Pyelonephritis Discharge Discharge Diagnosis / Problem: E. Coli UTI with Pyelonephritis Discharge Goals Goal(s): Decrease discomfort, Improve function, Increase independence Activity Recommendations Activity Limitations: resume your previous activity Instructions / Follow-Up Instructions / Follow-Up Pyelonephritis (Kidney Infection): E. coli - Continue Keflex 500 mg twice a day for 4 more days - start this tomorrow 02/20 since you had antibiotics today - Continue to drink adequate amounts of fluids and stay hydrated Severe Constipation: - Recommend continuing Colace (stool softener) and may use Miralax (laxative daily) - Recommend a high fiber diet and keeping hydrated - Recommend to have a colonoscopy done as routine preventative means Dysphagia (Difficulty Swallowing) - On your study here it showed esophageal spasm when your swallowing and some reflux - Will provide you with a prescription for Protonix (acid reducing medication) - fixing the reflux can help prevent the spasm - Another option is to use a calcium channel block (a blood pressure medication ) that could help relax the muscles of your esophagus but would likely need to replace one of your other blood pressure medications. Would discuss with your family doctor and will send the recommendations to her Current Hospital Diet Patient's current hospital diet: Regular Diet Discharge Diet Recommended Diet: Regular Diet Pending Studies Studies pending at discharge: no Medical Emergencies . Who to Call and When: Medical Emergencies: If at any time you feel your situation is an emergency, please call 911 immediately. . Non-Emergent Contact Non-Emergency issues call your: Primary Care Provider Call Non-Emergent contact if: you have a fever, your pain is concerning you, you have any medication questions . . "Provider Documentation" section prepared by Ama Gusman. . VTE Core Measure Inpt VTE Proph given/why not?: Selina Bishop, SCD's
[2017-02-19] MEDS: BuPROPion SR 150 MG TABCR PO SCH (14:04)
[2017-02-19] MEDS: DOCUSATE SODIUM 100 MG CAP PO SCH (14:04)
[2017-02-19] MEDS: LEVOTHYROXINE 112 MCG TAB PO SCH (14:04)
[2017-02-19] MEDS: GABAPENTIN 300 MG CAP PO SCH (14:04)
[2017-02-19] MEDS: LOSARTAN POTASSIUM 50 MG TAB PO SCH (14:05)
[2017-02-19] MEDS: VENLAFAXINE HCL XR 150 MG CAPXR PO SCH (14:05)
[2017-02-19 15:13] VITALS: BP 127/83; PULSE 71; TEMP 37.5; O2SAT 95
[2017-02-19 15:57] VITALS: BP 127/83; PULSE 71; TEMP 37.5; O2SAT 95
--- NOTE | 2017-02-19 16:18 | Discharge Summary ---
Discharge Summary Date of Service Feb 19, 2017. Discharge Summary Admission Date: Feb 17, 2017 at 14:05 Discharge Date: Feb 19, 2017 Discharge Disposition: Home Principal Diagnosis: Pyelonephritis; Esophageal Spasm Problems/Secondary Diagnoses: 1. HTN 2. HLD 3. Hypothyroidism 4. Alcohol Abuse on Antabuse Immunizations: Have You Had Influenza Vaccine: Yes Influenza Vaccine Date: Mar 14, 2012 History of Tetanus Vaccine?: Yes Tetanus Immunization Date: Apr 04, 2009 History of Pneumococcal: Yes History of Hepatitis B Vaccine: No Procedures: CT SCAN OF THE ABDOMEN AND PELVIS WITHOUT CONTRAST FINDINGS: Lower chest: There are mild basilar atelectatic changes. Liver: The unenhanced liver is normal in size, contour, and attenuation. There is no intrahepatic biliary ductal dilatation. Gallbladder: Unremarkable. Spleen: Normal in size and attenuation. Pancreas: Unremarkable. Adrenal glands: Unremarkable. Kidneys: There is mild right-sided hydronephrosis and right-sided perinephric stranding. No renal, ureteral, or bladder calculi are visualized. Diagnostic considerations include a recently passed or radiolucent calculus, infection, or other cause of ureteral obstruction. Close follow-up will be necessary. Bowel: There are no transition zones to indicate bowel obstruction. There is no acute diverticulitis. By history the appendix is surgically absent. Peritoneum: There is no intraperitoneal free air or abdominal ascites. Vasculature: The abdominal aorta is normal in course and caliber. Adenopathy: None. Pelvic viscera: The uterus appears surgically absent. Skeletal structures: No destructive osseous lesions are seen. IMPRESSION: 1. No evidence of bowel obstruction. No evidence of free air 2. Mild right-sided hydronephrosis and proximal hydroureter. No calculi identified. Diagnostic considerations include recently passed or radiolucent calculus, infection, or ureteral obstruction secondary to blood clot or neoplasm (RENAL)RETROPERITONEA COMP FINDINGS: Right kidney: Maximum dimension 10.6 cm. Slight fullness renal pelvis. Improved from the patient's prior CT study. Normal corticomedullary differentiation and cortical thickness. Left kidney: Maximum dimension 10.8 cm. No evidence for hydronephrosis. Normal corticomedullary differentiation and cortical thickness. Bladder: No bladder wall thickening. The bilateral ureteral jets were identified. IMPRESSION: Improved exam with only minimal residual fullness of the right renal pelvis. No current evidence for pneumothorax. THYROID ULTRASONOGRAPHY FINDINGS: The right lobe of the thyroid measures 36 x 12 x 9 mm. Left lobe of the thyroid measures 40 x 10 x 10 mm. Both lobes are heterogeneous in echotexture. There are no focal nodules. The thyroid is not enlarged. IMPRESSION: Heterogeneous thyroid echotexture, likely the sequela of thyroiditis. No thyroid masses identified (BARIUM SWALLOW) ESOPHAGUS FINDINGS: Patient initiated swallowing function well. There is moderate esophageal dysmotility. Gastroesophageal junction is unremarkable. There are findings of mild gastroesophageal reflux. IMPRESSION: 1. Moderate esophageal spasm and/or dysmotility. 2. Mild reflux. Consultations: 1. Speech Language Pathologist Medication Reconciliation New Medications: Cephalexin (Keflex) 500 Mg Cap 500 MG PO BID for 4 Days, #8 CAP Start tomorrow 02/20. Pantoprazole Sodium (Protonix) 40 Mg Tab 40 MG PO DAILY for 14 Days, #14 TAB Docusate Sodium (Docusate Sodium) 100 Mg Cap 100 MG PO BID for 30 Days, #60 CAP Continued Medications: Baclofen (Lioresal) 10 Mg Tab 10 MG PO TID PRN for prn, TAB Bupropion Hcl (Wellbutrin Sr) 150 Mg Tab 150 MG PO DAILY, TAB Celecoxib (CeleBREX) 200 Mg Cap 200 MG PO UD PRN for Pain, CAP Disulfiram (Antabuse) 250 Mg Tab 250 MG PO DAILY, TAB Gabapentin (Gabapentin) 300 Mg Cap 1 CAP PO DAILY Hydroxyzine HCl (Hydroxyzine HCl) 10 Mg Tab 1 TAB PO TID PRN for Anxiety Levothyroxine Sodium (Levothyroxine Sodium) 112 Mcg Tab 112 MCG PO DAILY Losartan Potassium (Cozaar) 100 Mg Tab 100 MG PO DAILY, #30 Oxybutynin Chloride (Ditropan Xl) 5 Mg Tab 10 TAB PO DAILY, TAB Prazosin Hcl (Prazosin) 1 Mg Cap 1 MG PO QID, #60 Simvastatin (Zocor) 40 Mg Tab 40 MG PO QPM, 0 Refills Trazodone Hcl (Desyrel) 50 Mg Tab 50 MG PO HS PRN for Insomnia, #60 TAB May take one or two pills by mouth at bedtime as needed for sleep Venlafaxine Hcl (Effexor Extended Rel) 150 Mg Cap 150 MG PO DAILY, CAP Discharge Exam Review of Systems: Constitutional: No fever, No chills Respiratory: No shortness of breath Cardiovascular: No chest pain Abdomen: No pain, No nausea, No vomiting, No diarrhea, No constipation, No GI bleeding Musculoskeletal: No swelling, No calf pain Genitourinary - Female: No dysuria, No urinary frequency, No urinary retention, No hematuria Psychiatric: No anxiety Hematologic / Lymphatic: No abnormal bleeding/bruising Physical Exam: General Appearance: WD/WN, no apparent distress Eyes: sclerae normal ENT: hearing grossly normal Neck: supple, no JVD, trachea midline Respiratory/Chest: lungs clear, normal breath sounds, no respiratory distress, no accessory muscle use Cardiovascular: regular rate, rhythm, no gallop, no murmur Abdomen / GI: normal bowel sounds, non tender, soft Extremities: no calf tenderness, no pedal edema Neurologic/Psychiatric: alert, oriented x 3 Skin: normal color, warm/dry Hospital Course ADMISSION: Ms. Norris is a 56 y/o female with PMHx of HTN, HLD, Hypothyroidism, and Alcohol Abuse on Antabuse who presents to the ED c/o constipation x 2 weeks. She reports she had a very small BM yesterday but was not adequate. She denies chronic H/O constipation. She has been utilizing 1-2 times a day laxatives x 1 week without BM. She also complains of abdominal pain, nausea, dysphagia, back pain, and dysuria x 3-4 days. She states that she noticed her chronic low back pain was more severe than baseline and does not feelings of needing to void but unable to a couple days ago. She does report feelings of being fevered and chilled but did not have a fever when she checked at home. Family reports that she has lost significant weight over the past 3 months due to depression/anxiety related to her leaving her. She does also contribute this to dysphagia and having difficulty initiating swallowing mostly with solid foods. She denies choking or coughing with eating. She also has a H/ O alcohol abuse and reports taking Antabuse x 3 months and was on it previous to this. She has not taken this medication x 2 days due to thinking it was causing her symptoms. However the dysphagia was prior to this medication. She has not had a drink of alcohol in > 3 months and denies withdrawal effects. In the ED, she has a mild leukocytosis and initially tachycardic. UA significant for infection with culture pending. CT with mild R hydronephrosis and proximal hydroureter, without stone visualized. HOSPITAL COURSE: Ms. Norris was admitted for Pyelonephritis from E. coli UTI, Constipation, and Esophageal Spasm. She was initiated on Rocephin with conversion to Keflex 500 mg BID to finish a 7 day course. Repeat imaging reveals improvement in R hydronephrosis and she reports resolution of pain and urinary symptoms. Her constipation resolved after numerous options including Milk of Molasses, Milk of Mag, Dulcolax, Miralax but ultimately resolved with Fleet Enema. CT showed significant stool in ascending colon and rectal exam did not have stool in the rectal vault. Due to longstanding dysphagia, speech language pathology consulted and found dysmotility due to esophageal spasm with reflux. Did provide Rx for protonix 40 mg daily for reflux to help possibly resolve spasms. Can consider calcium channel aissatou but may need to replace her current BP medications as this appears well controlled. Recommend follow-up with GI for esophageal spasm and routine preventative colonoscopy. Total Time Spent: Greater than 30 minutes This includes examination of the patient, discharge planning, medication reconciliation, and communication with other providers. Discharge Instructions Please refer to the electronic Patient Visit Report (Discharge Instructions) for additional information. Additional Copies To Felisa Guthrie PA-C
== END 2017-02-19 16:45 | disposition home or self-care (01) | DRG 690 ==
LOC: C.EDB 10:42 → C.4E 14:05 → ENRESERV 14:30
PROVIDERS: ADMIT Hospitalist; ATTEND Family Medicine
DX: N12 Tubulo-interstitial nephritis, not specified as acute or chronic (principal); B96.20 Unspecified Escherichia coli [E. coli] as the cause of diseases classified elsewhere; K59.00 Constipation, unspecified; K22.4 Dyskinesia of esophagus; K21.9 Gastro-esophageal reflux disease without esophagitis; E03.9 Hypothyroidism, unspecified; I10 Essential (primary) hypertension; E78.5 Hyperlipidemia, unspecified; F32.9 Major depressive disorder, single episode, unspecified; F41.9 Anxiety disorder, unspecified; F10.20 Alcohol dependence, uncomplicated; Z91.5 Personal history of self-harm; Z87.891 Personal history of nicotine dependence; Z79.899 Other long term (current) drug therapy; Z82.49 Family history of ischemic heart disease and other diseases of the circulatory system; Z88.2 Allergy status to sulfonamides; Z88.8 Allergy status to other drugs, medicaments and biological substances

== ENCOUNTER → 2018-01-16 | Outpatient (CLI) | payer OTHER ==
[~2018-01-16] MED LIST changes: +ATR10 PO; +CLB/200 PO; +CLC100 PO; +DISU1TAB PO; -HYDR1CAP85 PO; +NRN300 PO; +TRAZ1TAB48 PO; -TRAZ1TAB5 PO
--- NOTE | 2018-01-16 15:46 | DIAGNOSTIC IMAGING REPORT ---
LUMBAR SPINE W/O CONTRAST HISTORY: Pain. Neuropathy. STENOSIS TECHNIQUE: Multiplanar multisequence MRI of the lumbar spine was performed without the use of contrast. COMPARISON: 05/02/2016 FINDINGS: For the purpose of the report the L5-S1 disc space will be located on axial image 27 of 30. Considerable degenerative disc change throughout. This is perhaps slightly progressive compared to the prior study within limitations of patient motion artifact. L1-L2: Broad-based right posterior disc herniation. This is somewhat progressive from the prior exam. Mild narrowing right neuroforamina. Left neuroforamina is patent. L2-L3: Mild broad-based disc herniation similar compared to the prior study. L3-L4: Left posterolateral disc herniation creating considerable narrowing left neuroforamina. Significant impact left anterior aspect of the thecal sac. This is similar compared to the prior study. L4-L5: No significant central canal or neural foraminal narrowing. L5-S1: Mild central disc bulge with minimal impact anterior thecal sac. IMPRESSION: 1. Considerable degenerative disc change of the entire lumbar region. 2. These findings are somewhat progressive compared to the prior study. 3. Broad-based disc herniation L2-L3 unchanged. 4. Left posterolateral disc herniation L3-L4 similar to perhaps slightly increased in prominence from the prior study. 5. All additional levels show minimal to very mild disc bulges. The above report was generated using voice recognition software. It may contain grammatical, syntax or spelling errors. Electronically signed by: Zaki Marsh M.D. 01/16/2018 3:45 PM Dictated Date/Time: 01/16/2018 3:38 PM
== END | disposition home or self-care (01) ==
LOC: C.MRI 14:49
PROVIDERS: ATTEND Orthopaedic Surgery Orthopaedic Surgery of the Spine
DX: M48.062 Spinal stenosis, lumbar region with neurogenic claudication (principal); M47.816 Spondylosis without myelopathy or radiculopathy, lumbar region; M51.26 Other intervertebral disc displacement, lumbar region